=== PATIENT | male | born 1960 | race Caucasian/White ===

== ENCOUNTER 2016-06-25 08:03 | Outpatient (CLI) ==
[2013-02-02 20:38] VITALS: BMI 27.0
[2016-06-25 08:49] LABS: CREATININE 0.95 mg/dL (0.60-1.10)
--- NOTE | 2016-06-25 09:35 | CT ---
EXAM: CT chest with contrast. HISTORY: Chest pain. Shortness of breath. Dilated aortic root. COMPARISON: Radiograph 06/28/2014. TECHNIQUE: Multiple axial images of the chest were obtained following intravenous administration of 75 mL of Omnipaque 350, low osmolar. Images were reformatted in the sagittal and coronal planes. FINDINGS: No mediastinal, hilar, or axillary lymphadenopathy identified. Heart size is normal. Th ere is no pericardial effusion. Thoracic aorta measures up to 4.3 cm maximum diameter in the ascend ing portion. Sinus of Valsalva measures up to 4.5 x 4.2 cm diameter. Descending thoracic aorta is normal in caliber. There is no evidence for aortic dissection. Origins of the great vessels are pa tent. No large pulmonary arterial filling defects are seen. Multiple subpleural micronodules are s een in both lungs, some which may be calcified. The largest nodule measures 0.5 cm. The posterior right lower lobe on axial image 43. No consolidation, pleural effusion or pneumothorax identified. Limited images of the upper abdomen demonstrate no acute abnormality. There may be fatty infiltrati on of the liver. Nonspecific lymph nodes are present. Degenerative changes present in the spine. IMPRESSION: 1. No acute abnormality in the chest. 2. Ascending thoracic aortic aneurysm measuring up to 4.3 cm. 3. Bilateral micronodules. Follow-up chest CT in 12 months should be considered for reassessment.
== END 2016-06-25 08:04 | disposition home or self-care (01) ==
LOC: RAD 08:03
PROVIDERS: ATTEND Internal Medicine
DX: I77.810 Thoracic aortic ectasia (principal); R07.9 Chest pain, unspecified; R06.02 Shortness of breath
CPT/HCPCS: 36415; 82565

== ENCOUNTER 2016-07-09 06:17 | Outpatient (CLI) ==
[2013-02-02 20:38] VITALS: BMI 27.0
--- NOTE | 2016-07-10 12:15 | ECHO2D ---
Date of Exam: 07/09/16 Ordering Physician: SARA ZAYAS Reason for Echo: ASCENDING AORTIC ANEURYSM, SOA M-Mode Normal Adult Results LV Dimensions Normal Adult Results AoV Opening excursions >1.6 >1.6 LVEDD-base- 3.5-5.8 4.6 Ao root dimensions 2.0-3.7 4.3 LVESD-base- 3.1-4.6 L. Atrium dimensions 1.9-3.8 4.1 Post. Wall thickness 0.8-1.1 1.1 IV septum (thickness) 0.7-1.2 1.3 Post. Wall excursion 0.72-1.3 NORMAL Septal motion NORMAL Systolic motion R. Ventricular cavity 1.5-2.0 NORMAL LVEF 60% 55% Paradoxical septal wall motion NORMAL 2-D : ENLARGED LEFT ATRIAL CAVITY, DILATED AORTIC ROOT, NORMAL LEFT VENTRICULAR CONTRACTILITY, NORMAL LEFT VENTRICLE SIZE, NO EFFUSION, NO THROMBUS M-MODE: MV: NORMAL AV: NORMAL TV: NORMAL PV: CHAMBER SIZE: ENLARGED LEFT ATRIAL CAVITY WALL MOTION: NORMAL PERICARDIUM: NORMAL INTERPRETATION: 1. LEFT VENTRICULAR HYPERTROPHY WITH ENLARGED LEFT ATRIAL CAVITY 2. DILATED AORTIC ROOT 4.3 CM 3. NORMAL LEFT VENTRICLE CONTRACTILITY MTDD
== END 2016-07-09 06:18 | disposition home or self-care (01) ==
LOC: CAR 06:17
PROVIDERS: ATTEND Internal Medicine
DX: I71.2 Thoracic aortic aneurysm, without rupture (principal); R06.02 Shortness of breath

== ENCOUNTER 2016-07-15 06:35 | Outpatient (CLI) ==
[2013-02-02 20:38] VITALS: BMI 27.0
--- NOTE | 2016-07-17 10:31 | STRESSECHO ---
Date of Test: 07/15/16 Reason for Exam: SOB, LVH Ordering Physician: SARA ZAYAS Current Medications: LOTREL, PRAVASTATIN, WELLBUTRIN Physical Findings: S1, S2, NO S3 Resting EKG: SINUS RHYTHM/NO ACUTE CHANGES Target Heart Rate: 138/163 STAGE MPH/GRADE HEART RATE BPM BLOOD PRESSURE mmhg RHYTHM S-T SEGMENT +/- UP DOWN SYMPTOMS,COMMENTS At Rest 64 120/68 SR X NONE 1 1.7/10% 100 122/70 SR X NONE 2 2.5/12% 122 142/70 SR X NONE 3 3.4/14% 136 158/70 SR X NONE 4 4.2/16% 5 5.0/18% Immediately after 139 SR X SHORT OF BREATH Durations of Exercise: 8:00 Maximum Heart Rate Reached: 139 Reason for Termination: SHORT OF BREATH 1 MINUTE POST EXERCISE: HR 12O BPM, BP 180/84 MMHG, +/- 3 MINUTE POST EXERCISE: HR 90 BPM, BP 168/90 MMHG, SR, +/- INTERPRETATION: 97% OXYGEN SATURATION WITH EXERCISE ON ROOM AIR 1. TEST NEGATIVE FOR ISCHEMIC ST-T WAVE CHANGES 2. NO CHEST PAIN OR CHEST DISCOMFORT 3. BLOOD PRESSURE RESPONSE: MILD SYSTOLIC HYPERTENSION WITH EXERCISES 4. NO ARRHYTHMIAS PREM LEFT VENTRICULAR CONTRACTILITY--RESTING AND POST EXERCISE MTDD
--- NOTE | 2016-07-17 12:34 | ECHOSTRESS ---
Date of Exam: 07/15/16 Ordering Physician: SARA ZAYAS Reason for Echo: SOB, LVH, STRESS TEST--NO ISCHEMIA M-Mode Normal Adult Results LV Dimensions Normal Adult Results AoV Opening excursions >1.6 LVEDD-base- 3.5-5.8 Ao root dimensions 2.0-3.7 LVESD-base- 3.1-4.6 L. Atrium dimensions 1.9-3.8 Post. Wall thickness 0.8-1.1 IV septum (thickness) 0.7-1.2 Post. Wall excursion 0.72-1.3 Septal motion Systolic motion R. Ventricular cavity 1.5-2.0 LVEF 60% Paradoxical septal wall motion 2-D: NORMAL LEFT VENTRICULAR CONTRACTILITY--RESTING AND POST EXERCISE M-MODE: MV: AV: TV: PV: CHAMBER SIZE: WALL MOTION: NORMAL LEFT VENTRICULAR CONTRACTILITY--RESTING AND POST EXERCISE PERICARDIUM: INTERPRETATION: 1. NORMAL LEFT VENTRICULAR CONTRACTILITY--RESTING AND POST EXERCISE MTDD
== END 2016-07-15 06:36 | disposition home or self-care (01) ==
LOC: CAR 06:35
PROVIDERS: ATTEND Internal Medicine
DX: R06.02 Shortness of breath (principal); I51.7 Cardiomegaly; E78.5 Hyperlipidemia, unspecified; I10 Essential (primary) hypertension

== ENCOUNTER 2018-02-12 06:32 | Outpatient (CLI) ==
[2013-02-02 20:38] VITALS: BMI 27.0
--- NOTE | 2018-02-12 09:24 | CT ---
EXAM: CT chest with contrast HISTORY: Ascending aortic aneurysm COMPARISON: 06/25/2016 TECHNIQUE: CT chest performed with intravenous contrast. Coronal and sagittal reformatted images ob tained. FINDINGS: Thoracic inlet unremarkable. Heart normal in size. No pericardial effusion. Esophagus u nremarkable. No lymphadenopathy. Liver diffusely decreased in attenuation. No acute abnormalities of the bones. Degenerative change in the spine. Central airway patent. No airspace consolidation. No pleural effusion. No pneumothorax. Multiple stable subpleural nodules in both lungs, measuring up to 5 mm. Aneurysmal dilation ascending aorta measuring 4.5 x 4.4 cm, previously 4.3 x 4.3 cm. Ta keoff of the great vessels patent. No aortic dissection. IMPRESSION: 1. Ascending aortic aneurysm measuring 4.5 x 4.4 cm, previously 4.3 x 4.3 cm 2. No acute cardiopulmonary process. 3. Stable bilateral micronodules. 4. Probable hepatic steatosis.
--- NOTE | 2018-02-12 13:44 | ECHO2D ---
Date of Exam: 02/12/18 Ordering Physician: DR. SARA ZAYAS Room #: OP Reason for Echo: SOB, DILATED AORTIC VALVE, MVP M-Mode Normal Adult Results LV Dimensions Normal Adult Results AoV Opening excursions >1.6 >1.6 LVEDD-base- 3.5-5.8 5.2 Ao root dimensions 2.0-3.7 4.4 LVESD-base- 3.1-4.6 L. Atrium dimensions 1.9-3.8 3.8 Post. Wall thickness 0.8-1.1 1.3 IV septum (thickness) 0.7-1.2 1.2 Post. Wall excursion 0.72-1.3 NORMAL Septal motion NORMAL Systolic motion R. Ventricular cavity 1.5-2.0 NORMAL LVEF 60% 61% Paradoxical septal wall motion NORMAL 2-D : NORMAL LEFT VENTRICLE CONTRACTILITY--NORMAL VALVES, DILATED AORTIC ROOT, NORMAL LEFT VENTRICULAR CONTRACTILITY--NORMAL LEFT ATRIAL CAVITY SIZE, NO EFFUSION, NO THROMBUS COLOR FLOW: MAYBE TRACE AORTIC REGURGITATION M-MODE: MV: NORMAL AV: NORMAL TV: NORMAL PV: CHAMBER SIZE: NORMAL WALL MOTION: NORMAL PERICARDIUM: NORMAL INTERPRETATION: 1. BORDERLINE LEFT VENTRICULAR HYPERTROPHY 2. NORMAL LEFT VENTRICLE CONTRACTILITY 3. DILATED AORTIC ROOT--UNCHANGED 06/25 MTDD
== END 2018-02-12 06:33 | disposition home or self-care (01) ==
LOC: CAR 06:32
PROVIDERS: ATTEND Internal Medicine
DX: R06.02 Shortness of breath (principal); I35.8 Other nonrheumatic aortic valve disorders; I34.1 Nonrheumatic mitral (valve) prolapse; I71.6 Thoracoabdominal aortic aneurysm, without rupture
CPT/HCPCS: 36415; 82565